=== PATIENT | male | born 2000 | race Caucasian/White ===

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

== ENCOUNTER 2018-07-14 13:13 | Emergency (ER) | payer OTHER, MEDICAID ==
[~2018-07-14] VITALS: Ht 170.2 cm; Wt 82.3 kg
[~2018-07-14 13:13] MED LIST changes: -AMOX500C2 PO; -HYDR-3965 PO; -PRED20TA PO
[2018-07-14 13:17] VITALS: BP 130/81
== END 2018-07-14 14:06 | disposition home or self-care (01) ==
LOC: ER 13:13
DX: R07.89 Other chest pain (principal); R42 Dizziness and giddiness; F41.9 Anxiety disorder, unspecified; F12.90 Cannabis use, unspecified, uncomplicated; Z88.6 Allergy status to analgesic agent; Z88.8 Allergy status to other drugs, medicaments and biological substances
CPT/HCPCS: 71045; 93005; 99283

== ENCOUNTER 2018-07-26 13:04 | Emergency (ER) | payer OTHER, MEDICAID ==
[~2018-07-26] VITALS: Ht 170.2 cm; Wt 81.8 kg
[2018-07-26 13:14] VITALS: BP 127/61
--- NOTE | 2018-07-26 14:30 | NUR ---
PT CALLED X3 FOR ER ROOM. NIL. DR RUBIO NOTIFIED, NO FURTHER ACTION REQUIRED
[2018-07-27] MEDS ORDERED: HYDR-3686 PO (22:12)
== END 2018-07-26 14:30 | disposition left against medical advice (07) ==
LOC: ER 13:04
DX: F41.9 Anxiety disorder, unspecified (principal); Z53.21 Procedure and treatment not carried out due to patient leaving prior to being seen by health care provider

== ENCOUNTER 2018-07-27 16:38 | Emergency (ER) | payer OTHER, MEDICAID ==
[~2018-07-27] VITALS: Ht 170.2 cm; Wt 83.0 kg
--- NOTE | 2018-07-27 18:16 | NUR ---
RN sat with patient 1:1. Patient states he feels very suicidal, hopeless and helpless. 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 Patient's father loved him but was very harsh and verbally abusive. Patient went back to live with his mother 3 years ago. Mother's brain is fried due to drugs and patient states she is childlike. Patient states his ex-girlfriend cheated on him and he has trust issues. Patient also believes he is really ugly and has a very poor self-esteem. Patient did not graduate high school and has anxiety and panic attacks and has not been able to get his GED due to anxiety. Patient states when he started taking his anxiety pills he realized how depressed he really was. Patient exhibits sucidal ideation and has a high probabilty of self harm.
--- NOTE | 2018-07-27 19:00 | NUR ---
pt is resting and denies having pain and he also states feeling comfortable at the moment.
[2018-07-27 19:01] LABS: BASOPHILS # (AUTO) 0.1 X10'3 (0-0.2); BASOPHILS % (AUTO) 0.6 % (0-1); EOSINOPHILS # (AUTO) 0.1 X10'3 (0-0.9); EOSINOPHILS % (AUTO) 1.5 % (0-6); HEMATOCRIT 42.6 % (42.0-52.0); HEMOGLOBIN 14.7 g/dl (14.0-17.9); LYMPHOCYTES # (AUTO) 3.2 X10'3 (1.1-4.8); LYMPHOCYTES % (AUTO) 34.8 % (21-51); MEAN CORPUSCULAR HEMOGLOBIN 29.2 PG (27.0-31.0); MEAN CORPUSCULAR HGB CONC 34.4 g/dL (33.0-36.5); MEAN CORPUSCULAR VOLUME 84.7 FL (78-98); MEAN PLATELET VOLUME 8.2 FL (7.4-10.4); MONOCYTES # (AUTO) 0.6 X10'3 (0-0.9); NEUTROPHILS # (AUTO) 5.2 X10'3 (1.8-7.7); NEUTROPHILS % (AUTO) 56.1 % (42-75); PLATELET COUNT 242 X10'3 (140-440); RED BLOOD COUNT 5.02 X10'6 (4.70-6.10); RED CELL DISTRIBUTION WIDTH 13.3 % (11.5-14.5); WHITE BLOOD COUNT 9.2 X10'3 (4.5-11.0)
[2018-07-27 19:09] LABS: URINE AMPHETAMINE SCREEN NEGATIVE (Neg); URINE BARBITUATE SCREEN NEGATIVE (Neg); URINE BENZODIAZEPINES SCREEN NEGATIVE (Neg); URINE CANNABINOID SCREEN POSITIVE (Neg); URINE COCAINE SCREEN NEGATIVE (Neg); URINE METHADONE SCREEN NEGATIVE (Neg); URINE OPIATE SCREEN NEGATIVE (Neg); URINE PHENCYCLIDINE SCREEN NEGATIVE (Neg)
[2018-07-27 19:20] LABS: ALANINE AMINOTRANSFERASE 28 U/L (12-78); ALBUMIN 3.8 G/DL (3.4-5.0); ALBUMIN/GLOBULIN RATIO 1.1 (1.1-1.5); ALKALINE PHOSPHATASE 87 IU/L (20-180); ANION GAP 3 (8-16); ASPARTATE AMINO TRANSFERASE 17 U/L (10-37); BILIRUBIN,TOTAL 0.4 MG/DL (0.1-1.0); BLOOD UREA NITROGEN 15 MG/DL (7-18); BUN/CREATININE RATIO 14.3 (5.4-32.0); CALCIUM 9.3 MG/DL (8.5-10.1); CHLORIDE 107 MMOL/L (99-107); CREATININE 1.05 MG/DL (0.60-1.10); GLUCOSE 80 MG/DL (70-104); POTASSIUM 3.6 MMOL/L (3.5-5.1); SODIUM 142 MMOL/L (135-145); TOTAL CARBON DIOXIDE 31.6 MMOL/L (24-32); TOTAL PROTEIN 7.2 G/DL (6.4-8.2); eGFR 90 ML/MIN
[2018-07-27 19:26] LABS: ETHANOL < 0.010 GM/DL (0.0-0.010)
--- NOTE | 2018-07-27 21:00 | NUR ---
pt is sleeping and shows no sign of distress.
[2018-07-27] MEDS: hydrOXYzine 25 MG tablet PO PRN (21:51)
[2018-07-27] MEDS ORDERED: HYDR-3686 PO (22:12)
--- NOTE | 2018-07-27 22:54 | NUR ---
Packet faxed to [facility]. Unable to confirm receipt of packet as [id number] hours.
--- NOTE | 2018-07-27 23:02 | NUR ---
pt went back to sleep. He was awake for short period and requested hisn medication. He is now resting.
--- NOTE | 2018-07-28 00:38 | NUR ---
Pt's belongings documented and locked in cabinet in ambulance bay.
--- NOTE | 2018-07-28 01:01 | NUR ---
Patient sleeping and no apparent distress.
--- NOTE | 2018-07-28 03:01 | NUR ---
Checked on patient and he is sleeping.
--- NOTE | 2018-07-28 05:03 | NUR ---
No changes in condition. Patient is still sleeping.
--- NOTE | 2018-07-28 06:20 | NUR ---
patients mother called to fin out about what was happening
--- NOTE | 2018-07-28 06:20 | NUR ---
Patient's mother asked to speak with patient when she called. Notified patient was sleeping. Asked to call patient after 8:00.
--- NOTE | 2018-07-28 06:30 | NUR ---
Asleep upon change of shift observation. Breathing and color WNL. Undisturbed at this time.
--- NOTE | 2018-07-28 07:50 | NUR ---
Mother under the impression patient was to be admitted to [facility] ([facility]). [facility] called. Spoke with Pancho Lawson RN. There are no plans to admit patient at this time.
--- NOTE | 2018-07-28 07:50 | NUR ---
patients mother called
--- NOTE | 2018-07-28 08:30 | NUR ---
spoke with patient (elliott a hearing ear) about what he is going through.
--- NOTE | 2018-07-28 08:30 | NUR ---
Awakened for breakfast. Patient stated he was not hungry and refused his meal. Asked for and received PRN Atarax 50 mg. Patient stated he was here "because I had a very hard breakup when I was 12 and now I have PTSD." Insight and judgement impaired at this time. Patient is hoping to placed on Social Security Disability.
[2018-07-28] MEDS: hydrOXYzine 25 MG tablet PO PRN (08:43)
--- NOTE | 2018-07-28 09:30 | NUR ---
Mother here visiting with patient.
--- NOTE | 2018-07-28 12:00 | NUR ---
Patient sleeping off and on durint the morning. Getting up to use the bathroom or the telephone. States "I made a mistake and I don't need to be here. I don't want to kill myself."
--- NOTE | 2018-07-28 12:30 | NUR ---
Alma Delia Burciaga from [facility] at bedside to evaluate patient for possible 5150 criteria.
--- NOTE | 2018-07-28 12:45 | NUR ---
Patient does not meet criteria for 5150 status. Will be discharged home to mother where he resides.
--- NOTE | 2018-07-28 13:10 | NUR ---
Discharge Note: Patient discharged to home with all his personal possessions. Will F/U with [facility] on . Patient unable to contact his mother for a ride. A taxi was providered to take him safely home.
[2018-07-28 14:54] VITALS: BP 120/72
== END 2018-07-28 13:15 | disposition home or self-care (01) ==
LOC: ER 16:39
DX: S40.811A Abrasion of right upper arm, initial encounter (principal); F32.9 Major depressive disorder, single episode, unspecified; F41.9 Anxiety disorder, unspecified; F12.90 Cannabis use, unspecified, uncomplicated; Z90.49 Acquired absence of other specified parts of digestive tract; Z88.5 Allergy status to narcotic agent; Z88.6 Allergy status to analgesic agent; Z88.8 Allergy status to other drugs, medicaments and biological substances; X78.9XXA Intentional self-harm by unspecified sharp object, initial encounter; Y93.89 Activity, other specified; Y92.89 Other specified places as the place of occurrence of the external cause; Y99.9 Unspecified external cause status
CPT/HCPCS: 36415; 80053; 80305; 80320; 84443; 85025; 99284; Q0177

== ENCOUNTER 2018-08-06 15:01 | Emergency (ER) | payer OTHER, MEDICAID ==
[~2018-08-06] VITALS: Ht 170.2 cm; Wt 81.8 kg
[~2018-08-06 15:01] MED LIST changes: +HYDR-3686 PO
[2018-08-06 15:15] VITALS: BP 126/66
[2018-08-06] MEDS ORDERED: TRIA15CR61 TOP (16:26)
== END 2018-08-06 17:16 | disposition home or self-care (01) ==
LOC: ER 15:02
DX: L25.9 Unspecified contact dermatitis, unspecified cause (principal); F41.9 Anxiety disorder, unspecified; F31.9 Bipolar disorder, unspecified; F12.90 Cannabis use, unspecified, uncomplicated; Z90.49 Acquired absence of other specified parts of digestive tract; Z88.5 Allergy status to narcotic agent; Z88.8 Allergy status to other drugs, medicaments and biological substances; Z79.899 Other long term (current) drug therapy
CPT/HCPCS: 99283

== ENCOUNTER 2020-09-07 10:22 | Emergency (ER) | payer MEDICAID, OTHER ==
[~2020-09-07] VITALS: Ht 172.7 cm; Wt 92.0 kg
[~2020-09-07 10:22] MED LIST changes: +ATI0.5T PO; +CITA-124 PO; -CLIN150C8 PO; -CLON-527 PO; -FAMO-128 PO; -HYDR-3686 PO; -LURA40TA3 PO; -ONDA8TAB9 PO; +PALI3TAB5 PO; +TRAZ-251 PO
[2020-09-07 10:26] VITALS: BP 151/85
[2020-09-07] MEDS ORDERED: PENI500T2 PO (14:01)
== END 2020-09-07 14:09 | disposition home or self-care (01) ==
LOC: ER 10:22
DX: K04.7 Periapical abscess without sinus (principal); F41.9 Anxiety disorder, unspecified; F31.9 Bipolar disorder, unspecified; F12.90 Cannabis use, unspecified, uncomplicated; Z90.89 Acquired absence of other organs; Z88.5 Allergy status to narcotic agent; Z88.8 Allergy status to other drugs, medicaments and biological substances; Z79.2 Long term (current) use of antibiotics; Z79.899 Other long term (current) drug therapy
CPT/HCPCS: 99283

== ENCOUNTER 2022-02-03 01:43 | Emergency (ER) | payer MEDICAID ==
[~2022-02-03] VITALS: Ht 172.7 cm; Wt 77.3 kg
[2022-02-03 03:56] LABS: BASOPHILS % (AUTO) 0.1 % (0-1); EOSINOPHILS % (AUTO) 0 % (0-6); HEMATOCRIT 45.5 % (42.0-52.0); HEMOGLOBIN 15.3 g/dl (14.0-17.9); LYMPHOCYTES # (AUTO) 1.4 X10'3 (1.1-4.8); LYMPHOCYTES % (AUTO) 8.3 % (21-51); MEAN CORPUSCULAR HEMOGLOBIN 28.5 PG (27.0-31.0); MEAN CORPUSCULAR HGB CONC 33.7 g/dL (33.0-36.5); MEAN CORPUSCULAR VOLUME 84.8 FL (78-98); MEAN PLATELET VOLUME 8.6 FL (7.4-10.4); MONOCYTES # (AUTO) 1.2 X10'3 (0-0.9); MONOCYTES % (AUTO) 6.9 % (2-12); NEUTROPHILS # (AUTO) 14.4 X10'3 (1.8-7.7); NEUTROPHILS % (AUTO) 84.7 % (42-75); PLATELET COUNT 268 X10'3 (140-440); RED BLOOD COUNT 5.36 X10'6 (4.70-6.10); RED CELL DISTRIBUTION WIDTH 13.4 % (11.5-14.5)
[2022-02-03] MEDS ORDERED: TETanus/Pertussis (Acell)/Diphther VAC/PF (Tdap-Adult) 0.5ml syringe IMVAC ONE (04:00)
[2022-02-03 04:06] LABS: ALANINE AMINOTRANSFERASE 20 U/L (12-78); ALBUMIN 4.4 G/DL (3.4-5.0); ALBUMIN/GLOBULIN RATIO 1.3 (1.1-1.5); ALKALINE PHOSPHATASE 79 IU/L (46-116); ANION GAP 12 (8-16); ASPARTATE AMINO TRANSFERASE 28 U/L (10-37); BILIRUBIN,TOTAL 0.6 MG/DL (0.1-1.0); BLOOD UREA NITROGEN 16 MG/DL (7-18); BUN/CREATININE RATIO 13.3 (5.4-32.0); CALCIUM 9.4 MG/DL (8.5-10.1); CHLORIDE 101 MMOL/L (99-107); ETHANOL < 0.010 GM/DL (0.0-0.010); GLUCOSE 97 MG/DL (70-104); POTASSIUM 3.8 MMOL/L (3.5-5.1); SODIUM 139 MMOL/L (135-145); TOTAL CARBON DIOXIDE 26.3 MMOL/L (24-32); TOTAL PROTEIN 7.8 G/DL (6.4-8.2); eGFR 74 ML/MIN
[2022-02-03 04:07] LABS: URINE AMPHETAMINE SCREEN NEGATIVE (Neg); URINE BARBITUATE SCREEN NEGATIVE (Neg); URINE BENZODIAZEPINES SCREEN NEGATIVE (Neg); URINE CANNABINOID SCREEN POSITIVE (Neg); URINE COCAINE SCREEN NEGATIVE (Neg); URINE METHADONE SCREEN NEGATIVE (Neg); URINE OPIATE SCREEN NEGATIVE (Neg); URINE PHENCYCLIDINE SCREEN NEGATIVE (Neg)
[2022-02-03 04:14] LABS: ACETAMINOPHEN < 2.0 UG/ML (10-30)
[2022-02-03] MEDS ORDERED: OLANZapine 2.5MG tablet PO STA (04:27)
--- NOTE | 2022-02-03 04:54 | NUR ---
PT UNABLE TO RECALL HIS HOME MEDS .
--- NOTE | 2022-02-03 05:03 | NUR ---
PT PACKET SEND IT TO [facility] AT THIS TIME.
--- NOTE | 2022-02-03 05:16 | NUR ---
PT RESTING IN BED QUIETLY .RR WNL ,WILL CONT TO MONITOR.
[2022-02-03 05:41] VITALS: BP 116/64
--- NOTE | 2022-02-03 06:03 | NUR ---
PT SLEEPING OM HIS RGT LATERAL POSITION ,RR WNL ,WILL CONT TO MONITOR.
[2022-02-03 07:28] LABS: CLARITY,URINE CLOUDY (Clear); COLOR,URINE YELLOW (Yellow); GLUCOSE, URINE NEGATIVE (Neg); KETONES,URINE 40 mg/dl (Neg); LEUKOCYTE ESTERASE ,URINE NEGATIVE (Neg); NITRITES, URINE NEGATIVE (Neg); OCCULT BLOOD,URINE NEGATIVE (Neg); PROTEIN,URINE TRACE mg/dl (Neg); UROBILINOGEN,URINE 0.2 E.U/dL (0.2-1.0)
[2022-02-03 07:32] LABS: AMORPHOUS URATES 4+; BACTERIA,URINE NONE SEEN /HPF (Neg); MUCUS STRANDS FEW /LPF (Neg); RBC,URINE NONE SEEN /HPF (0-2); SQUAMOUS EPITHELIAL CELL,UR NONE SEEN /LPF (FEW); UA COLLECTION TYPE VOIDED; WBC,URINE 0-4 /HPF (0-4)
[2022-02-03] MEDS ORDERED: olanzapine 10mg tablet PO SCH (08:00)
--- NOTE | 2022-02-03 10:37 | NUR ---
pt mother called (Yennifer) stated she wanted to talk to him, at the time, pt was being evaluated. tech infored her that they would inform the pt that she called and would like the pt to call back. After evaluation pt was informed, pt stated that he did not want to talk to her.
--- NOTE | 2022-02-03 12:19 | NUR ---
PT RESTING ON RIGHT SIDE WITH EYES CLOSED WITH EQUAL AND NON-LABORED RESPIRATIONS.
== END 2022-02-03 15:43 ==
LOC: ER 01:44 → EEVIPCON 01:44 → ER 15:43
DX: S81.812A Laceration without foreign body, left lower leg, initial encounter (principal); S81.811A Laceration without foreign body, right lower leg, initial encounter; Z20.822 Contact with and (suspected) exposure to COVID-19; F22 Delusional disorders; F32.9 Major depressive disorder, single episode, unspecified; F41.9 Anxiety disorder, unspecified; F12.90 Cannabis use, unspecified, uncomplicated; Z90.49 Acquired absence of other specified parts of digestive tract; Z88.5 Allergy status to narcotic agent; Z88.8 Allergy status to other drugs, medicaments and biological substances; X58.XXXA Exposure to other specified factors, initial encounter; Y93.89 Activity, other specified; Y92.89 Other specified places as the place of occurrence of the external cause; Y99.8 Other external cause status
CPT/HCPCS: 36415; 80053; 80305; 80320; 80329; 81001; 85025; 87811; 90471; 90715; 99285

== ENCOUNTER 2022-02-16 07:36 | Emergency (ER) | payer MEDICAID ==
[~2022-02-16] VITALS: Ht 170.2 cm; Wt 78.8 kg
[2022-02-16 11:12] VITALS: BP 132/77
[2022-02-16] MEDS ORDERED: HYDR25CA PO ×2 (11:19)
[2022-02-16] MEDS ORDERED: hydrOXYzine 25 MG tablet PO ONE (11:35)
[2022-02-17] MEDS ORDERED: PROP10TA10 PO (06:39)
[2022-02-17] MEDS ORDERED: PALI156D IM (06:41)
== END 2022-02-16 18:27 | disposition home or self-care (01) ==
LOC: ER 07:37
DX: F41.9 Anxiety disorder, unspecified (principal); F31.9 Bipolar disorder, unspecified; F12.90 Cannabis use, unspecified, uncomplicated; Z90.89 Acquired absence of other organs; Z88.5 Allergy status to narcotic agent; Z88.8 Allergy status to other drugs, medicaments and biological substances; Z79.899 Other long term (current) drug therapy
CPT/HCPCS: 99283; Q0177

== ENCOUNTER 2022-02-16 17:34 | Emergency (ER) | payer MEDICAID ==
[~2022-02-16] VITALS: Ht 170.2 cm; Wt 77.3 kg
[~2022-02-16 17:34] MED LIST changes: +HYDR25CA PO
[2022-02-16] MEDS ORDERED: cloNIDine 0.1 mg tablet PO ONE (19:20)
[2022-02-16] MEDS ORDERED: haloperidol 5mg tablet PO ONE (19:25)
[2022-02-16] MEDS ORDERED: LORazepam 1 MG tablet PO ONE (19:30)
--- NOTE | 2022-02-16 19:39 | NUR ---
PT IN ER ROOM 10 WITH ENVIRONMENT CHECK COMPLETED. PT IS IN GREEN SCRUBS. PT IS EXPRESSING ANXIETY AND A CONSTANT FEAR THAT HE IS UNSAFE AND FEELS THE NEED TO FLEE. THE PT HAS BEEN REORIENTED AND REASSURED HE IS SAFE IN THE ER. DR KONG NOTIFIED, ORDERS RECD.
[2022-02-16 19:45] LABS: URINE AMPHETAMINE SCREEN NEGATIVE (Neg); URINE BARBITUATE SCREEN NEGATIVE (Neg); URINE BENZODIAZEPINES SCREEN NEGATIVE (Neg); URINE CANNABINOID SCREEN POSITIVE (Neg); URINE COCAINE SCREEN NEGATIVE (Neg); URINE METHADONE SCREEN NEGATIVE (Neg); URINE OPIATE SCREEN NEGATIVE (Neg); URINE PHENCYCLIDINE SCREEN NEGATIVE (Neg)
[2022-02-16 19:50] LABS: BASOPHILS % (AUTO) 0.5 % (0-1); EOSINOPHILS # (AUTO) 0.1 X10'3 (0-0.9); EOSINOPHILS % (AUTO) 0.6 % (0-6); HEMATOCRIT 43.5 % (42.0-52.0); HEMOGLOBIN 14.8 g/dl (14.0-17.9); LYMPHOCYTES # (AUTO) 2.4 X10'3 (1.1-4.8); MEAN CORPUSCULAR HGB CONC 33.9 g/dL (33.0-36.5); MEAN CORPUSCULAR VOLUME 85.5 FL (78-98); MEAN PLATELET VOLUME 7.8 FL (7.4-10.4); MONOCYTES # (AUTO) 0.6 X10'3 (0-0.9); MONOCYTES % (AUTO) 7.2 % (2-12); NEUTROPHILS # (AUTO) 5.5 X10'3 (1.8-7.7); NEUTROPHILS % (AUTO) 63.7 % (42-75); PLATELET COUNT 223 X10'3 (140-440); RED BLOOD COUNT 5.09 X10'6 (4.70-6.10); RED CELL DISTRIBUTION WIDTH 13.5 % (11.5-14.5); WHITE BLOOD COUNT 8.7 X10'3 (4.5-11.0)
[2022-02-16 19:59] LABS: ALANINE AMINOTRANSFERASE 22 U/L (12-78); ALBUMIN 3.8 G/DL (3.4-5.0); ALBUMIN/GLOBULIN RATIO 1.2 (1.1-1.5); ALKALINE PHOSPHATASE 81 IU/L (46-116); ANION GAP 8 (8-16); ASPARTATE AMINO TRANSFERASE 15 U/L (10-37); BILIRUBIN,TOTAL 0.4 MG/DL (0.1-1.0); BLOOD UREA NITROGEN 11 MG/DL (7-18); BUN/CREATININE RATIO 10.7 (5.4-32.0); CALCIUM 8.7 MG/DL (8.5-10.1); CHLORIDE 101 MMOL/L (99-107); CREATININE 1.03 MG/DL (0.60-1.10); ETHANOL < 0.010 GM/DL (0.0-0.010); GLUCOSE 150 MG/DL (70-104); POTASSIUM 3.2 MMOL/L (3.5-5.1); SODIUM 137 MMOL/L (135-145); TOTAL CARBON DIOXIDE 28.5 MMOL/L (24-32); eGFR 89 ML/MIN
--- NOTE | 2022-02-16 20:38 | NUR ---
Lars ro in [facility] - 02/16/22 at 2041 by TEETEE I agree with Herberth Roca, Baljeet assessment.
--- NOTE | 2022-02-16 20:40 | NUR ---
PT NOW RESTING IN [facility]. PT APPEARS TO BE ALSEEP. RESPIRATIONS EQUAL AND UNLABORED. NO DISTRESS APPARENT AT THIS TIME.
--- NOTE | 2022-02-17 00:49 | NUR ---
PTS MOTHER CALLED REQUESTING INFORMATION. MOTHER INFORMED THAT THE PATIEN IS ASLEEP AND NO INFORMATION WILL BE GIVEN OUT UNTIL PERMISSION IS OBTAINED FROM THE PT WHEN HE AWAKES.
--- NOTE | 2022-02-17 01:27 | NUR ---
PT PLACED ON A HOSPITAL BED UPON WAKING UP. PT ALSO GAVE PERMISSION FOR HIS MOTHER TO BE GIVEN AN UPDATE.
--- NOTE | 2022-02-17 05:06 | NUR ---
SPOKE WITH PTS MOTHER, DESIREE, AND GAVE HER AN UPDATE ON THE PTS CONDITION.
[2022-02-17] MEDS ORDERED: PROP10TA10 PO (06:39)
--- NOTE | 2022-02-17 06:40 | NUR ---
Patient brought over by RN and tech. Patient is very anxious. RN spoke to patient and re-assured patient that he was safe and we are going to take care of him. Patient verbalized understanding.
[2022-02-17] MEDS ORDERED: PALI156D IM (06:41)
--- NOTE | 2022-02-17 08:55 | NUR ---
Patient eating breakfast. No distress observed. Continue to monitor.
--- NOTE | 2022-02-17 09:27 | NUR ---
Faxed packet to [facility]
--- NOTE | 2022-02-17 09:31 | NUR ---
Mother [phone]. Patient sleeping. Will ask him to call her when he awakens
--- NOTE | 2022-02-17 10:54 | NUR ---
patient asleep, respirations regular.
--- NOTE | 2022-02-17 11:31 | NUR ---
Patient is up using the restroom.
[2022-02-17] MEDS ORDERED: potassium Cl 20 mEq SR tablet PO STA (11:39)
[2022-02-17] MEDS ORDERED: LORazepam 1 MG tablet PO ONE (11:40)
[2022-02-17 11:55] LABS: CLARITY,URINE SLIGHTLY CLOUDY (Clear); COLOR,URINE YELLOW (Yellow); GLUCOSE, URINE NEGATIVE (Neg); KETONES,URINE NEGATIVE (Neg); LEUKOCYTE ESTERASE ,URINE NEGATIVE (Neg); NITRITES, URINE NEGATIVE (Neg); OCCULT BLOOD,URINE NEGATIVE (Neg); PROTEIN,URINE NEGATIVE (Neg); UROBILINOGEN,URINE 0.2 E.U/dL (0.2-1.0)
[2022-02-17 12:06] LABS: UA COLLECTION TYPE CLN CATCH MIDSTREAM
[2022-02-17 12:09] LABS: BACTERIA,URINE FEW /HPF (Neg); SQUAMOUS EPITHELIAL CELL,UR FEW /LPF (FEW)
[2022-02-17 12:10] LABS: RBC,URINE 0-2 /HPF (0-2); WBC,URINE 0-4 /HPF (0-4)
--- NOTE | 2022-02-17 12:20 | NUR ---
Patient eating lunch. No distress observed. Continue to monitor.
--- NOTE | 2022-02-17 14:03 | NUR ---
Patient wants to know if he is going to [facility]. RN called [facility] and they states [facility] has not responded. [facility] stated they are going to send the packet to [facility] for possible placement there. Continue to monitor.
--- NOTE | 2022-02-17 15:07 | NUR ---
Patient sleeping on left side. No distress observed. Continue to monitor.
--- NOTE | 2022-02-17 17:03 | NUR ---
Patient sleeping. No distress observed. Continue to monitor.
--- NOTE | 2022-02-17 18:30 | NUR ---
received report from Amada RN, pt resting in bed, no resp distress
[2022-02-17] MEDS ORDERED: diphenhydrAMINE 25mg capsule PO ONE (19:15)
[2022-02-17] MEDS: propranolol 10mg tablet PO SCH (19:36)
--- NOTE | 2022-02-17 20:30 | NUR ---
Pt states he is having a panic attack due to cohort being agitated. Reassured pt is safe.
--- NOTE | 2022-02-17 22:30 | NUR ---
pt sleeping on right side, eyes closed, chest rise and fall
--- NOTE | 2022-02-18 00:30 | NUR ---
pt sleeping on back, no distress noted, eyes closed, chest rise and falls
--- NOTE | 2022-02-18 02:30 | NUR ---
pt awoke from cohort yelling and asked for ear plugs
--- NOTE | 2022-02-18 04:30 | NUR ---
pt sleeping on left side, no distress noted, eyes closed and chest rises and falls
--- NOTE | 2022-02-18 06:10 | NUR ---
pt in bed eyes open, no signs of distress
[2022-02-18 06:14] VITALS: BP 132/72
--- NOTE | 2022-02-18 06:40 | NUR ---
Patient sleeping on right side. No distress observed. Continue to monitor.
--- NOTE | 2022-02-18 08:16 | NUR ---
Patient eating breakfast. No distress observed. Continue to monitor.
[2022-02-18] MEDS: propranolol 10mg tablet PO SCH (09:01)
[2022-03-18] MEDS ORDERED: paliperidone palmitate 156 mg/ml inj.**IM only IM SCH (09:05)
== END 2022-02-18 09:35 | disposition still patient (30) ==
LOC: ER 17:34
DX: F20.9 Schizophrenia, unspecified (principal); Z20.822 Contact with and (suspected) exposure to COVID-19; R45.851 Suicidal ideations
CPT/HCPCS: 36415; 80053; 80305; 80320; 81001; 84443; 85025; 87811; 99285; Q0163